=== PATIENT | female | born 1985 | race Caucasian/White ===

== ENCOUNTER 2017-04-28 21:21 | Emergency (ER) | payer OTHER ==
[~2017-04-28] VITALS: Ht 162.6 cm; Wt 81.6 kg
[~2017-04-28 21:21] MED LIST: OSEL75CA PO; TUSSI PRES-B L120 M1 PO
== END 2017-04-28 22:20 | disposition home or self-care (01) ==
LOC: ER 21:21
DX: S00.83XA Contusion of other part of head, initial encounter (principal); W21.02XA Struck by soccer ball, initial encounter; Y93.89 Activity, other specified; Y92.89 Other specified places as the place of occurrence of the external cause; Y99.8 Other external cause status

== ENCOUNTER 2018-11-01 21:42 | Outpatient (CLI) | payer OTHER ==
[2018-11-01] MEDS ORDERED: PRENATAL CAPLE1 EAC1 PO (22:45)
== END 2018-11-02 09:25 | disposition home or self-care (01) ==
LOC: OBS/DEL 21:42
DX: O26.892 Other specified pregnancy related conditions, second trimester (principal); R10.2 Pelvic and perineal pain

== ENCOUNTER 2018-11-29 18:00 | Inpatient (IN) | payer OTHER ==
[~2018-11-29] VITALS: Ht 162.6 cm; Wt 89.4 kg
[~2018-11-29 18:00] MED LIST changes: +PRENATAL CAPLE1 EAC1 PO
[2018-11-29] MEDS ORDERED: PROBIOTIC1 EAC2 PO (18:50)
== END 2018-12-01 11:28 | disposition home or self-care (01) | DRG 833 ==
LOC: LDR 18:00 → OB/GYN 11-30 14:23
PROVIDERS: ADMIT Obstetrics & Gynecology Maternal & Fetal Medicine
PROC: BY4FZZZ Ultrasonography of Third Trimester, Single Fetus (ICD-10-PCS; principal; 2018-11-29)
PROC: 4A1HXCZ Monitoring of Products of Conception, Cardiac Rate, External Approach (ICD-10-PCS; 2018-11-29)
DX: O46.8X3 Other antepartum hemorrhage, third trimester (principal); O34.13 Maternal care for benign tumor of corpus uteri, third trimester; D25.1 Intramural leiomyoma of uterus; O65.5 Obstructed labor due to abnormality of maternal pelvic organs

== ENCOUNTER 2019-01-08 10:56 | Inpatient (IN) | payer OTHER ==
[~2019-01-08 10:56] MED LIST changes: +PROBIOTIC1 EAC2 PO
== END 2019-01-30 13:06 | disposition home or self-care (01) | DRG 788 ==
LOC: OB/GYN 01-27 10:18 → LDR 01-27 10:18 → O/R 01-27 13:27 → OB/GYN 01-27 14:43
PROVIDERS: ADMIT Obstetrics & Gynecology
PROC: 4A1HXCZ Monitoring of Products of Conception, Cardiac Rate, External Approach (ICD-10-PCS; 2019-01-27)
PROC: 10D00Z1 Extraction of Products of Conception, Low, Open Approach (ICD-10-PCS; principal; 2019-01-27 12:00)
DX: O82 Encounter for cesarean delivery without indication (principal); O65.4 Obstructed labor due to fetopelvic disproportion, unspecified; Z3A.39 39 weeks gestation of pregnancy; Z37.0 Single live birth

== ENCOUNTER 2019-01-27 07:15 | Outpatient (CLI) | payer OTHER | END 2019-01-27 10:20 | disposition still patient (30) | LOC: OBS/DEL 07:15 | DX: O47.1 False labor at or after 37 completed weeks of gestation (principal) ==

== ENCOUNTER 2020-12-28 07:45 | Inpatient (IN) | payer OTHER ==
[~2020-12-28] VITALS: Ht 162.6 cm; Wt 2.7 kg
== END 2021-01-01 16:05 | disposition home or self-care (01) | DRG 788 ==
LOC: SURH 12-30 07:00 → SURG-SUITE 12-30 09:03 → LDR 12-30 09:03 → O/R 12-30 11:38 → SURG-SUITE 12-30 12:47
PROVIDERS: ADMIT Obstetrics & Gynecology; ATTEND Obstetrics & Gynecology
PROC: 4A1HXFZ Monitoring of Products of Conception, Cardiac Rhythm, External Approach (ICD-10-PCS; 2020-12-30)
PROC: 10D00Z1 Extraction of Products of Conception, Low, Open Approach (ICD-10-PCS; principal; 2020-12-30 07:00)
DX: O34.211 Maternal care for low transverse scar from previous cesarean delivery (principal); Z37.0 Single live birth; Z3A.39 39 weeks gestation of pregnancy